=== PATIENT | male | born 1950 ===

== ENCOUNTER 2020-11-21 09:19 | Outpatient (CLI) | payer MEDICARE, OTHER ==
[~2020-11-21 09:19] MED LIST: DULCOLAX STOOL100 MG PO; ELIQUIS 5MG PO; KLOR-CON M2020 MEQ PO; LANOXIN 0.25M0.25 MG PO; LASIX 40MG TABL40 MG PO; MAGNESIUM200 MG PO; PEPCID 20MG TAB20 MG PO; PERCOCET 325 MG1 TA3 PO; PRILOSEC 20MG20 MG PO; TOPROL XL 50MG50 MG PO; VITAMIN D31000 IU PO; ZOCOR 10MG10 MG PO; ZYRTEC 10MG10 MG PO
== END 2020-11-29 12:02 | disposition home or self-care (01) ==
LOC: COL.RAD 09:19
DX: R91.8 Other nonspecific abnormal finding of lung field (principal)

== ENCOUNTER 2021-01-11 10:53 | Day surgery (SDC) | payer MEDICARE, OTHER ==
[~2021-01-11] VITALS: Ht 177.8 cm; Wt 73.4 kg
[2021-01-11] MEDS ORDERED: PRINIVIL5 MG PO (11:57)
[2021-01-11] MEDS ORDERED: TRIAM OI 0.1 454 TOP (12:04)
[2021-01-11 12:06] VITALS: BP 167/68; PULSE 48; TEMP 98
[2021-01-11 13:30] VITALS: BP 166/88; PULSE 85; TEMP 97.5
--- NOTE | 2021-01-11 13:30 | NUR ---
PATIENT TRANSPORTED PER CART FROM OR TO [facility] ACCOMPANIED BY OR STAFF. MONITORS APPLIED. VSS STABLE ON ROOM AIR. SISTER AT BEDSIDE. PATIENT DENIES DISCOMFORT AND NAUSEA. INCISION TO RIGHT UPPER CHEST OPEN TO AIR, CLEAN, DRY AND INTACT. 1340 PATIENT GIVEN WATER, COFFEE AND PUDDING.
[2021-01-11 13:45] VITALS: BP 190/89; PULSE 75
--- NOTE | 2021-01-11 13:55 | NUR ---
BLOOD PRESSURE 190/89. PATIENT HAS CHRONIC PAIN. PATIENT EATS PUDDING AND DRINKS WATER/COFFEE WITHOUT PROBLEMS. INCSION CDI. PATIENT IS ANXIOUS TO LEAVE. WILL CONTINUE MONITOR BLOOD PRESSURE.
[2021-01-11 14:00] VITALS: BP 180/75; PULSE 76
--- NOTE | 2021-01-11 14:02 | NUR ---
BLOOD PRESSURE 190/89. WILL CONTINUE TO MONITOR. PATIENT EATS PUDDING AND DRINKS WATER AND COFFEE WITHOUT PROBLEMS. PATIENT IS ANXIOUS TO LEAVE.
--- NOTE | 2021-01-11 14:05 | NUR ---
BLOOD PRESSURE IMPROVED. OTHER VITALS SABLE. PATIENT DENIES DISCOMFORT AT INCISION SITE AND NAUSESA. SISTER AT BEDSIDE. 1410 PATIENT AMBULATED TO THE BATHROOM WITH STEADY GAIT USING CANE. VOIDS WITHOUT PROBLEMS. 1415 IV SITE DC'D WITH CATHETER TIP INTACT. PRESSURE AND BANDAGE APPLIED. DISCHARGE INSTRUCTIONS GIVEN VERBALLY AND DISCHARGE PACKET PROVIDED. PORT A CATH INSTRUCTIONS AND CARDS DISCUSSED AND PATIENT VOICED UNDERSTANDING. PATIENT CHANGES INTO [place] CLOTHES. 1425 PATIENT DISCHARGED PER WHEEL CHAIR ACCOMPANIED BY AMB RN TO CAR DRIVEN BY PATIENT'S SISTER.
== END 2021-01-11 14:25 | disposition home or self-care (01) ==
LOC: SDCO 10:53
DX: C34.91 Malignant neoplasm of unspecified part of right bronchus or lung (principal); Z79.01 Long term (current) use of anticoagulants; N40.0 Benign prostatic hyperplasia without lower urinary tract symptoms; E11.9 Type 2 diabetes mellitus without complications; I48.11 Longstanding persistent atrial fibrillation; I11.0 Hypertensive heart disease with heart failure; I50.9 Heart failure, unspecified; D69.6 Thrombocytopenia, unspecified; E78.5 Hyperlipidemia, unspecified; K21.9 Gastro-esophageal reflux disease without esophagitis; F17.210 Nicotine dependence, cigarettes, uncomplicated; Z88.8 Allergy status to other drugs, medicaments and biological substances
CPT/HCPCS: C1788; J0690; J1644; J2704; J7120

== ENCOUNTER → 2021-07-03 | Outpatient (CLI) | payer MEDICARE, OTHER ==
[~2021-07-03] MED LIST changes: +PRINIVIL5 MG PO; +TRIAM OI 0.1 454 TOP
== END ==
LOC: COL.RAD 10:24
DX: I73.9 Peripheral vascular disease, unspecified (principal); I70.8 Atherosclerosis of other arteries; I71.4 Abdominal aortic aneurysm, without rupture
CPT/HCPCS: Q9967